=== PATIENT | female | born 1995 | race African-American/Black ===

== ENCOUNTER 2017-11-02 17:25 | Emergency (ER) | payer SELFPAY ==
[2017-11-02 17:26] VITALS: BP 138/64; PULSE 92; RESP 16; TEMP 98.2; O2SAT 98
[2017-11-02] MEDS ORDERED: CEPHALEXIN MONOHYDRATE 500 MG CAP PO ONE (18:30)
[2017-11-02] MEDS ORDERED: SULFAMETHOXAZOLE-TRIMETHOPRIM DS 800-160 MG TAB PO ONE (18:30)
[2017-11-02] MEDS ORDERED: IBUPROFEN 600 MG TAB PO ONE (18:30)
--- NOTE | 2017-11-02 18:34 | PD ---
HPI Chief Complaint: Skin Problem Time Seen by Provider: 18:19 Travel History International Travel<30 days: No Contact w/Intl Traveler<30days: No Traveled to known affect area: No History of Present Illness HPI 22-year-old female presents to the ED for evaluation of approximately 24-hour history of reddened, tender, warm area on the back of the left elbow. Patient states she woke up and had a small sore area that is worsened over time. She denies fevers, chills, nausea, vomiting, numbness, tingling, weakness, limitations to range of motion of the extremity. She denies history of MRSA. She treated at home with warm compresses with no improvement of symptoms. [facility] Past Medical History Diminished Hearing: Yes Immunizations Current: No ?: Not LMP: 10/01/17 Social History Alcohol Use: No Tobacco Use: Yes Substance Use: Yes Allergies-Medications (Allergen,Severity, Reaction): Coded Allergies: No Known Allergies (Verified , 03/14/14) Reported Meds & Prescriptions Reported Meds & Active Scripts Active No Active Prescriptions or Reported Medications Review of Systems Except as stated in HPI: all other systems reviewed are Neg Physical Exam Narrative GENERAL: Well-nourished, well-developed after [place] female in no acute distress. SKIN: Focused skin assessment warm/dry. SKIN: There is an indurated area in the left posterior elbow, just inferior to the joint which measures about 1 cm in diameter. No fluctuance, no pointing, no drainage. There is a zone of inflammation around it but no lymphangitis. HEAD: Normocephalic. EYES: No scleral icterus. No injection or drainage. NECK: Supple, trachea midline. No JVD or lymphadenopathy. CARDIOVASCULAR: Regular rate and rhythm without murmurs, gallops, or rubs. RESPIRATORY: Breath sounds equal bilaterally. No accessory muscle use. GASTROINTESTINAL: Abdomen soft, non-tender, nondistended. MUSCULOSKELETAL: No cyanosis, or edema. BACK: Nontender without obvious deformity. No CVA tenderness. Data Data Last Documented VS Vital Signs Date Time Temp Pulse Resp B/P (MAP) Pulse Ox O2 Delivery O2 Flow Rate FiO2 11/02/17 17:26 98.2 92 16 138/64 (88) 98 Orders Orders Sulfamet-Trimeth Ds 800-160 Mg (Bactrim (11/02/17 18:30) Cephalexin (Keflex) (11/02/17 18:30) Ibuprofen (Motrin) (11/02/17 18:30) [facility] Medical Decision Making Medical Screen Exam Complete: Yes Emergency Medical Condition: Yes Differential Diagnosis Folliculitis versus insect bite versus cellulitis versus abscess versus other Narrative Course 22-year-old female presents to the ED for evaluation of approximately 24-hour history of reddened, tender, warm area on the back of the left elbow. Patient states she woke up and had a small sore area that is worsened over time. She denies fevers, chills, nausea, vomiting, numbness, tingling, weakness, limitations to range of motion of the extremity. She denies history of MRSA. Vitals reviewed. Physical exam consistent with cellulitis. Patient's prescribed Profen, Bactrim and Keflex, first doses administered in the ED. I marked the area of cellulitis. She is instructed to take the medications as prescribed, apply warm compresses multiple times a day. She is cautioned not to squeeze the area. She is instructed to return to the ED in 36-48 hours for wound recheck, sooner if symptoms worsen. She indicated understanding of the instructions and is agreeable with the care plan. The patient is stable and discharged home. Diagnosis Primary Impression: Cellulitis of left elbow Referrals: Primary Care Physician Patient Instructions: Cellulitis (ED), General Instructions Additional Instructions: Rest, hydrate. Take all antibiotics as they are prescribed. Take every pill until they are all gone. Warm compresses every few hours to help draw out infection. Do not squeeze the wound as this can drive infection deeper. Ibuprofen as needed for pain. Return to the ED in 36-48 hours for wound recheck. Return to the ED sooner if symptoms worsen as discussed. Med/Other Pt SpecificInfo: Prescription(s) given Scripts No Active Prescriptions or Reported Meds Disposition: 01 DISCHARGE HOME Condition: Stable Ailyn Bowman Nov 02, 2017 18:34
[2017-11-02] MEDS ORDERED: IBUP-232 PO (19:41)
[2017-11-02] MEDS ORDERED: CEPH-460 PO (19:41)
[2017-11-02] MEDS ORDERED: BACT800T5 PO (19:41)
== END 2017-11-02 19:56 | disposition home or self-care (01) ==
LOC: NEPK 17:25
DX: L03.114 Cellulitis of left upper limb (principal); Z72.0 Tobacco use
CPT/HCPCS: 99283